=== PATIENT | female | born 1990 | race African-American/Black ===

== ENCOUNTER 2016-11-27 14:01 | Emergency (ER) | payer MEDICAID ==
[2014-06-17 06:10] VITALS: BMI 33.6
[~2016-11-27 14:01] MED LIST: BIRTH CONTROL PILLS; HYDROCODON-ACE1 EAC7 PO; IBUPROFEN600 MG PO; PRENATAL COMPLE1 TAB PO
[2016-11-27 16:44] LABS: BASOPHILS 0.4 % (0-2); HEMATOCRIT 36.6 % (36.0-48.0); HEMOGLOBIN 11.6 g/dL (12-16); LYMPHOCYTES 50.1 % (15-50); MCH 27.3 pg (26.0-34.0); MCHC 31.7 g/dL (31.0-37.0); MCV 86.1 fL (80.0-100.0); MEAN PLATELET VOLUME 10.6 fL (7.4-10.4); NEUTROPHILS 39.5 % (40-80); PLATELET COUNT 233 10x3/uL (130-400); RBC 4.25 10x6/uL (4.00-5.40); RDW 13.5 % (11.5-14.5)
[2016-11-27 17:04] LABS: ALBUMIN 3.4 g/dL (3.4-5.0); ALKALINE PHOSPHATASE 43 U/L (46-116); ALT (SGPT) 12 U/L (10-68); BILIRUBIN - TOTAL 0.32 mg/dL (0.2-1.3); CALC OSMOLALITY 279 mosm/kg (275-300); CALCIUM 8.5 mg/dL (8.5-10.1); CARBON DIOXIDE 31.7 mmol/L (21.0-32.0); CHLORIDE - SERUM 104 mmol/L (98-107); CREATININE - SERUM 0.8 mg/dL (0.6-1.3); GLUCOSE 84 mg/dL (74-106); POTASSIUM - SERUM 4.1 mmol/L (3.5-5.1); PROTEIN - SERUM 6.6 g/dL (6.4-8.2); SODIUM 142 mmol/L (136-145); UREA NITROGEN 8 mg/dL (7-18); eGFR NON AFRICAN AMERICAN > 90 mL/min (90-120)
[2016-11-27 17:07] LABS: CREATINE KINASE 48 UL (21-215)
[2016-11-27 17:08] LABS: TROPONIN-I < 0.017 ng/mL (0.000-0.060)
[2016-11-27 17:37] LABS: APPEARANCE CLEAR (CLEAR); BILIRUBIN NEGATIVE (NEGATIVE); COLOR YELLOW (YELLOW); GLUCOSE NEGATIVE (NEGATIVE); HCG URINE NEGATIVE (NEGATIVE); KETONE NEGATIVE (NEGATIVE); LEUKOCYTE ESTERASE NEGATIVE (NEGATIVE); NITRITE NEGATIVE (NEGATIVE); PROTEIN NEGATIVE (NEGATIVE); UROBILINOGEN NORMAL (NORMAL)
== END 2016-11-27 19:09 | disposition home or self-care (01) ==
LOC: D.ER 14:01
PROVIDERS: Nurse Practitioner Family
DX: R07.89 Other chest pain (principal)

== ENCOUNTER 2017-07-09 07:15 | Emergency (ER) | payer MEDICAID ==
[2014-06-17 06:10] VITALS: BMI 33.6
== END 2017-07-09 08:00 | disposition home or self-care (01) ==
LOC: D.ER 07:15
DX: K08.89 Other specified disorders of teeth and supporting structures (principal); K02.9 Dental caries, unspecified

== ENCOUNTER 2018-02-27 00:57 | Emergency (ER) | payer MEDICAID ==
[~2018-02-27] VITALS: Ht 170.2 cm; Wt 100.0 kg
[2018-02-27 01:00] VITALS: BP 126/63; Ht 170.2 cm; Wt 100.0 kg
[2018-02-27] MEDS ORDERED: IBUPROFEN800 MG PO (01:15)
== END 2018-02-27 01:19 | disposition home or self-care (01) ==
LOC: D.ER 00:57
DX: R09.1 Pleurisy (principal)

== ENCOUNTER 2019-11-06 11:59 | Emergency (ER) | payer MEDICAID ==
[~2019-11-06] VITALS: Ht 170.2 cm; Wt 90.5 kg
[~2019-11-06 11:59] MED LIST changes: +IBUPROFEN800 MG PO
[2019-11-06 12:04] VITALS: Ht 170.2 cm; Wt 90.5 kg
[2019-11-06 12:46] LABS: HEMATOCRIT 35.4 % (36.0-48.0); HEMOGLOBIN 11.5 g/dL (12-16); LYMPHOCYTES 30.9 % (15-50); MCHC 32.5 g/dL (31.0-37.0); MCV 89.4 fL (80.0-100.0); MEAN PLATELET VOLUME 10.2 fL (7.4-10.4); NEUTROPHILS 60.3 % (40-80); RBC 3.96 10x6/uL (4.00-5.40); RDW 13.1 % (11.5-14.5); WBC 5.4 10x3/uL (4.8-10.8)
[2019-11-06 12:51] LABS: PLATELET COUNT 283 10x3/uL (130-400)
[2019-11-06 12:54] LABS: CALC OSMOLALITY 277 mosm/kg (275-300); CALCIUM 9.1 mg/dL (8.5-10.1); CARBON DIOXIDE 29.6 mmol/L (21.0-32.0); CHLORIDE - SERUM 106 mmol/L (98-107); CREATININE - SERUM 0.7 mg/dL (0.6-1.3); GLUCOSE 94 mg/dL (74-106); SODIUM 140 mmol/L (136-145); UREA NITROGEN 11 mg/dL (7-18); eGFR NON AFRICAN AMERICAN > 90 mL/min (90-120)
[2019-11-06 12:56] LABS: HCG SERUM NEGATIVE (NEGATIVE)
[2019-11-06 13:03] LABS: ALBUMIN 3.8 g/dL (3.4-5.0); ALKALINE PHOSPHATASE 41 U/L (30-120); ALT (SGPT) 8 U/L (10-68); AMYLASE - SERUM 43 U/L (25-115); BILIRUBIN - TOTAL 0.38 mg/dL (0.2-1.3); LIPASE 74 U/L (73-393); TROPONIN-I < 0.017 ng/mL (0.000-0.060)
[2019-11-06 13:13] LABS: BILIRUBIN NEGATIVE (NEGATIVE); GLUCOSE NEGATIVE (NEGATIVE); KETONE NEGATIVE (NEGATIVE); NITRITE NEGATIVE (NEGATIVE); SPECIFIC GRAVITY 1.005 (1.005-1.020); UROBILINOGEN NORMAL (NORMAL)
[2019-11-06 13:14] LABS: BACTERIA FEW /hpf (NEGATIVE); RED CELLS - URINE >50 /hpf (0-5); WHITE CELLS - URINE 0-5 /hpf (NEGATIVE)
[2019-11-06] MEDS ORDERED: MIRALAX17 GM PO (14:32)
[2019-11-06 14:47] VITALS: BP 123/91
== END 2019-11-06 14:48 | disposition home or self-care (01) ==
LOC: D.ER 11:59
PROVIDERS: Family Medicine
DX: R10.32 Left lower quadrant pain (principal); K59.00 Constipation, unspecified

== ENCOUNTER 2020-07-29 05:25 | Day surgery (SDC) | payer MEDICAID ==
[2020-07-26 12:50] LABS: BASOPHILS 0.5 % (0-2); HEMATOCRIT 33.3 % (36.0-48.0); HEMOGLOBIN 10.5 g/dL (12-16); LYMPHOCYTE ABS# 1.77 10x3/uL (1.18-3.74); LYMPHOCYTES 44.6 % (15-50); MCH 27.8 pg (26.0-34.0); MCHC 31.5 g/dL (31.0-37.0); MCV 88.1 fL (80.0-100.0); MEAN PLATELET VOLUME 10.1 fL (7.4-10.4); MONOCYTES 7.6 % (2-11); NEUTROPHIL ABS# 1.84 10x3/uL (1.56-6.13); NEUTROPHILS 46.3 % (40-80); PLATELET COUNT 303 10x3/uL (130-400); RBC 3.78 10x6/uL (4.00-5.40); RDW 13.7 % (11.5-14.5)
[~2020-07-29] VITALS: Ht 170.2 cm; Wt 85.7 kg
--- NOTE | ~2020-07-29 | OP ---
PATIENT NAME: LESAJULY MEDICAL RECORD: [id number] :89 LOCATION:D[facility] ADMISSION DATE: SURGEON: DOMINICK ZAMORA MD DATE OF OPERATION: 07/29/2020 PREOPERATIVE DIAGNOSES: 1. Pelvic pain. 2. Presence of bilateral Essure tubal occlusive devices. POSTOPERATIVE DIAGNOSES: 1. Pelvic pain. 2. Presence of bilateral Essure tubal occlusive devices. PROCEDURE: Laparoscopic removal of Essure implants. SURGEON: Dominick Zamora MD ANESTHESIA: General endotracheal. INTRAVENOUS FLUID: Per anesthesia record. ESTIMATED BLOOD LOSS: Minimal. COMPLICATIONS: None apparent. FINDINGS: 1. Grossly normal-appearing uterus and ovaries. 2. Fallopian tubes with palpable bilateral Essure implants. DESCRIPTION OF PROCEDURE: The patient was taken to the operating room where general anesthesia was achieved without difficulty. The patient was then prepped and draped in normal sterile fashion in the dorsal lithotomy position. A Moon catheter was placed and an acorn uterine manipulator was placed into the cervix and a single-toothed tenaculum was placed on the anterior lip of the cervix for uterine manipulation intraoperatively. The patient was then prepped and draped and a 5-mm incision was made infraumbilically and a 5-mm bladeless trocar was used to enter the intraperitoneal space under direct visualization of laparoscope. Opening pressure was found to be less than 8 mmHg. The introducer was then removed and the camera was replaced and intraperitoneal placement was confirmed visually. The patient was then insufflated and a second 5-mm port and third 5-mm port were placed in the left and right lower quadrants. Following 5-mm skin incision, the 5-mm bladeless trocars were used to enter the intraperitoneal space under direct visualization of the laparoscope. Attention was then turned to the uterus for survey of the abdomen and pelvis was performed. The atraumatic grasper was used to palpate the Essure implant within the tube. Just distally, the Thunderbeat electrocautery device was then used to coagulate a section of the fallopian tube. Progressive dissection using the laparoscopic scissors and Thunderbeat device were then used until the solid portion of the Essure implant was identified on the proximal side of the tubal incision. The Essure implant was then gently milked from the cornua until it was noted to be complete and the Essure implant was then removed. This was then performed on the right cornua. Following removal of the Essure implant, bilateral salpingectomy was performed using the Thunderbeat electrocautery device. The mesosalpinx was completely coagulated and cut distally on both sides. The fallopian tubes were then removed in their entirety. The cornual OPERATIVE REPORT [id number] were then coagulated using the Thunderbeat. Good hemostasis noted. The patient tolerated the procedure well and was transferred to postanesthesia recovery stable without incident. TRANSINT:[id number] Voice Confirmation ID: [id number] DOCUMENT ID: [id number] DOMINICK ZAMORA MD CC: [id number] DICTATION DATE: 08/08/20524 PENCIL SORTER: 08/08/20 0800 [facility] 07/29/20 [address] [place] [address]
[~2020-07-29 05:25] MED LIST changes: +BUPROPION XL150 MG PO; +MIRALAX17 GM PO
[2020-07-29 06:14] VITALS: BP 145/81; Ht 170.2 cm; Wt 85.7 kg
[2020-07-29 06:55] LABS: HCG URINE NEGATIVE (NEGATIVE)
--- NOTE | 2020-07-29 09:26 | NUR ---
PT AWAKENING, OPA REMOVED
--- NOTE | 2020-07-29 12:23 | NUR ---
1139 IV DC'D. CATHETER TIP INTACT. NO BLEEDING,SWELLING,REDNESS AT SITE. BANDAID APPLIED. 1158 DISCHARGE INSTRUCTIONS REVIEWED WITH PT AND HER . BOTH VOICE UNDERSTANDING OF INSTRUCTIONS. HAS DISCHARGE PACKET IN POSSESSION.
== END 2020-07-29 11:58 | disposition home or self-care (01) ==
LOC: D.OPS 05:25
PROVIDERS: ATTEND Obstetrics & Gynecology
DX: R10.2 Pelvic and perineal pain (principal); F32.9 Major depressive disorder, single episode, unspecified